=== PATIENT | male | born 1940 | race Caucasian/White ===

== ENCOUNTER 2020-12-10 12:53 | Emergency (ER) | payer MEDICARE, OTHER, SELFPAY ==
--- NOTE | 2020-12-10 12:58 | ED.WOUNDLAC ---
HPI - Wound/Laceration General Chief Complaint: Wound/Laceration Stated Complaint: lt hand index finger laceration Time Seen by Provider: 12/10/20 12:58 Source: patient, family and RN notes reviewed History of Present Illness HPI narrative: Patient is an 80-year-old male who presents the urgent care with his son with complaints of a laceration to the left index finger. Patient states it happened just prior to arrival while he was getting a deer with a knife. Patient is not up-to-date on his tetanus shot. States that he has not clean the wound, has only controlled the bleeding. Patient is right-hand dominant. Denies of any other injuries. No other acute complaints. No acute distress noted. Patient and son aware of the plan of care. Some parts of this dictation were generated by voice recognition software and may contain typographical and/or grammatical inaccuracies. Related Data Home Medications Medication Instructions Recorded Confirmed losartan 12/10/20 pravastatin 12/10/20 Allergies Allergy/AdvReac Type Severity Reaction Status Date / Time No Known Allergies Allergy Verified 12/10/20 13:09 Review of Systems Review of Systems: CONSTITUTIONAL: Denies fever, chills, or sweats. EYES: Denies visual changes, redness, or discharge. ENT: Denies rhinorrhea, congestion, sore throat, or otalgia. CARDIOVASCULAR: Denies chest pain, palpitations, or edema. RESPIRATORY: Denies cough or dyspnea. GASTROINTESTINAL: Denies abdominal pain, nausea, vomiting, or diarrhea. GENITOURINARY: Denies dysuria or hematuria. SKIN: Reports of a laceration to the left index finger MUSCULOSKELETAL: Denies back pain, joint pain, or myalgia. NEUROLOGIC: Denies headache, numbness, or weakness. All other systems reviewed are negative, except as documented in HPI. PMFSH Comments At the time of my signature, I reviewed and agree with the nursing past medical, surgical, social, and family history. There is no relevant family history pertinent to the patient complaint. Exam Narrative: GENERAL: This is a well-nourished, well-developed patient, in no apparent distress. HEAD: normocephalic, atraumatic. EYES: PERRL. Sclera clear/white. Vision is grossly intact. EARS: External ears normal NOSE: External nose normal with no obvious nasal discharge, nares without redness, no rhinorrhea. THROAT: Mucous membranes moist NECK: Neck supple CARDIOVASCULAR: Regular rate SKIN: 2 cm triangular flap laceration to the radial aspect of the left index finger. Warm, intact with no suspicious lesions or rash, good texture and turgor. NEURO: awake, alert, and oriented to person, place and time. There were no obvious focal neurologic abnormalities. EXTREMITIES: No clubbing, cyanosis, or edema. Range of motion to the left index finger within normal with capillary refill less than 2 seconds. Positive strong left radial pulse. Course Vital Signs Vital signs: Vital Signs Temperature 98.3 F 12/10/20 13:10 Pulse Rate 83 12/10/20 13:10 Respiratory Rate 16 12/10/20 13:10 Blood Pressure 144/91 H 12/10/20 13:10 Pulse Oximetry 98 12/10/20 13:10 Temperature 98.3 F 12/10/20 13:10 Pulse Rate 83 12/10/20 13:10 Respiratory Rate 16 12/10/20 13:10 Blood Pressure 144/91 H 12/10/20 13:10 Pulse Oximetry 98 12/10/20 13:10 Reviewed-patient is informed that they may have pre-hypertension or hypertension based on a blood pressure reading in the department. I recommend the patient call the primary care provider listed on their discharge instructions or a physician of their choice this week to arrange follow-up for further evaluation of possible pre-hypertension or hypertension. Procedures Laceration Laceration 1: Site: other (Index finger) Side (If applicable): left Size (cm): 2 Description: flap (Triangular) Depth: simple, single layer Local Anesthetic: lidocaine 1% Amount of anesthesia used (mL): 1
[2020-12-10 13:10] VITALS: BP 144/91; PULSE 83; RESP 16; TEMP 36.8; O2SAT 98
[2020-12-10] MEDS: TETANUS,DIPHTHERIA,AC PERTUSSIS ADULT (0.5 ML) BOOSTRIX IM (13:44)
== END 2020-12-10 13:48 | disposition home or self-care (01) ==
PROVIDERS: Emergency Provider Nurse Practitioner Family; PCP Internal Medicine
DX: S61.211A Laceration without foreign body of left index finger without damage to nail, initial encounter (principal); W26.0XXA Contact with knife, initial encounter; Z23 Encounter for immunization; E78.00 Pure hypercholesterolemia, unspecified; I10 Essential (primary) hypertension
CPT/HCPCS: 12001; 90471; 90715; 99202; G0463